=== PATIENT | female | born 1945 | race Two or more races ===

== ENCOUNTER 2017-04-29 13:11 | Outpatient (CLI) | payer OTHER ==
[~2017-04-29 13:11] MED LIST: ATORVASTATIN CA40 MG PO; AVAPRO150 MG PO; BACLOFEN10 MG PO; CARVEDILOL6.25 MG PO; CLONAZEPAM1 MG PO; COLACE100 MG PO; CYMBALTA60 MG PO; GABAPENTIN800 MG PO; PANTOPRAZOLE SO40 MG PO; PERCOCET 5/3251 TAB PO; PLAVIX75 MG PO; SYNTHROID112 MCG PO
== END 2017-04-29 13:16 | disposition home or self-care (01) ==
LOC: RAD 13:11
DX: M43.10 Spondylolisthesis, site unspecified (principal); M50.00 Cervical disc disorder with myelopathy, unspecified cervical region; Z98.1 Arthrodesis status

== ENCOUNTER 2017-07-02 13:53 | Outpatient (CLI) | payer OTHER | END 2017-07-02 13:55 | disposition home or self-care (01) | LOC: RAD 13:53 | DX: S22.42XA Multiple fractures of ribs, left side, initial encounter for closed fracture (principal); F12.90 Cannabis use, unspecified, uncomplicated; M81.0 Age-related osteoporosis without current pathological fracture; G45.8 Other transient cerebral ischemic attacks and related syndromes; G60.8 Other hereditary and idiopathic neuropathies; Z96.659 Presence of unspecified artificial knee joint; M51.9 Unspecified thoracic, thoracolumbar and lumbosacral intervertebral disc disorder; M54.16 Radiculopathy, lumbar region; I11.9 Hypertensive heart disease without heart failure; I67.2 Cerebral atherosclerosis; F33.1 Major depressive disorder, recurrent, moderate ==

== ENCOUNTER 2017-08-31 13:42 | Outpatient (CLI) | payer OTHER | END 2017-08-31 13:43 | disposition home or self-care (01) | LOC: RAD 13:42 | DX: M50.00 Cervical disc disorder with myelopathy, unspecified cervical region (principal); M43.10 Spondylolisthesis, site unspecified; Z98.1 Arthrodesis status ==

== ENCOUNTER 2018-01-05 13:54 | Outpatient (CLI) | payer OTHER | END 2018-01-05 15:13 | disposition home or self-care (01) | LOC: SONOGRAMA 13:54 | DX: R10.2 Pelvic and perineal pain (principal); F12.90 Cannabis use, unspecified, uncomplicated; M81.0 Age-related osteoporosis without current pathological fracture; I70.0 Atherosclerosis of aorta; G45.9 Transient cerebral ischemic attack, unspecified; G60.9 Hereditary and idiopathic neuropathy, unspecified; Z96.659 Presence of unspecified artificial knee joint; M51.9 Unspecified thoracic, thoracolumbar and lumbosacral intervertebral disc disorder; M54.16 Radiculopathy, lumbar region; I11.9 Hypertensive heart disease without heart failure; I65.23 Occlusion and stenosis of bilateral carotid arteries; I67.2 Cerebral atherosclerosis; F33.1 Major depressive disorder, recurrent, moderate ==

== ENCOUNTER 2018-04-14 12:42 | Outpatient (CLI) | payer OTHER | END 2018-04-14 12:46 | disposition home or self-care (01) | LOC: MRI 12:42 | DX: M54.5 Low back pain (principal) | CPT/HCPCS: 72148 ==

== ENCOUNTER → 2018-06-14 | Outpatient (CLI) | payer OTHER | END | disposition home or self-care (01) | LOC: MRI 13:17 | DX: G43.711 Chronic migraine without aura, intractable, with status migrainosus (principal); M51.36 Other intervertebral disc degeneration, lumbar region; M50.00 Cervical disc disorder with myelopathy, unspecified cervical region; Z98.1 Arthrodesis status | CPT/HCPCS: 70551 ==

== ENCOUNTER 2018-08-20 08:40 | Outpatient (CLI) | payer OTHER | END 2018-08-20 08:44 | disposition home or self-care (01) | LOC: SONOGRAMA 08:40 → MAMO-SONO 08:45 | DX: R10.13 Epigastric pain (principal) ==

== ENCOUNTER 2018-11-30 14:32 | Outpatient (CLI) | payer OTHER | END 2018-11-30 14:35 | disposition home or self-care (01) | LOC: TOM 14:32 | DX: E66.09 Other obesity due to excess calories (principal); F12.90 Cannabis use, unspecified, uncomplicated; Z68.33 Body mass index [BMI] 33.0-33.9, adult; G60.8 Other hereditary and idiopathic neuropathies; I11.9 Hypertensive heart disease without heart failure; K27.9 Peptic ulcer, site unspecified, unspecified as acute or chronic, without hemorrhage or perforation; I67.2 Cerebral atherosclerosis; F33.1 Major depressive disorder, recurrent, moderate; G45.8 Other transient cerebral ischemic attacks and related syndromes; M54.16 Radiculopathy, lumbar region; M51.9 Unspecified thoracic, thoracolumbar and lumbosacral intervertebral disc disorder; M81.0 Age-related osteoporosis without current pathological fracture; Z96.659 Presence of unspecified artificial knee joint ==

== ENCOUNTER → 2019-12-16 12:32 | Outpatient (CLI) | payer OTHER | END | disposition home or self-care (01) | LOC: LAB 12:32 | DX: M43.17 Spondylolisthesis, lumbosacral region (principal) ==

== ENCOUNTER → 2020-08-27 | Outpatient (CLI) | payer OTHER | END | disposition home or self-care (01) | LOC: LAB 11:23 → EDBD 11:23 | PROVIDERS: ATTEND Radiology Diagnostic Radiology | DX: N20.0 Calculus of kidney (principal); Z51.81 Encounter for therapeutic drug level monitoring ==

== ENCOUNTER → 2020-08-29 | Outpatient (CLI) | payer OTHER | END | disposition home or self-care (01) | LOC: TOM 07:53 → EDBD 08:30 → TOM 08:30 | PROVIDERS: ATTEND Internal Medicine Cardiovascular Disease | DX: I26.99 Other pulmonary embolism without acute cor pulmonale (principal); I10 Essential (primary) hypertension | CPT/HCPCS: 71260; 71046; Q9965 ==

== ENCOUNTER 2020-09-18 11:08 | Outpatient (CLI) | payer OTHER | END 2020-09-18 11:14 | disposition home or self-care (01) | LOC: TOM 11:08 | DX: K08.9 Disorder of teeth and supporting structures, unspecified (principal) ==

== ENCOUNTER 2021-07-17 12:53 | Outpatient (CLI) | payer OTHER | END 2021-07-17 12:55 | disposition home or self-care (01) | LOC: NUCLEAR 12:53 | PROVIDERS: ATTEND Specialist | DX: M81.0 Age-related osteoporosis without current pathological fracture (principal); Z88.8 Allergy status to other drugs, medicaments and biological substances ==

== ENCOUNTER 2021-10-27 14:14 | Outpatient (CLI) | payer OTHER | END 2021-10-27 14:26 | disposition home or self-care (01) | LOC: MRI 14:14 | PROVIDERS: ATTEND Anesthesiology | DX: M54.50 Low back pain, unspecified (principal); M53.9 Dorsopathy, unspecified | CPT/HCPCS: 72141; 72148 ==

== ENCOUNTER → 2024-08-11 09:31 | Outpatient (CLI) | payer OTHER | END | disposition home or self-care (01) | LOC: SONOGRAMA 09:31 | DX: R10.13 Epigastric pain (principal) ==

== ENCOUNTER 2025-02-06 13:24 | Outpatient (CLI) | payer OTHER | END 2025-02-06 13:32 | disposition home or self-care (01) | LOC: MRI 13:24 | DX: G45.9 Transient cerebral ischemic attack, unspecified (principal) | CPT/HCPCS: 70552; Q9965 ==

== ENCOUNTER → 2025-02-06 14:48 | Outpatient (CLI) | payer OTHER ==
[2025-02-06 14:16] LABS: CREATININE SERUM 0.9 mg/dL (0.55-1.02)
== END | disposition home or self-care (01) ==
LOC: LAB
DX: G45.9 Transient cerebral ischemic attack, unspecified (principal)